=== PATIENT | female | born 1990 | race Caucasian/White ===

== ENCOUNTER 2018-08-11 07:30 | Inpatient (IN) | payer BC ==
[2018-08-12 11:53] LABS: RPR Titer ND
[2018-08-12 11:57] LABS: Urine Appearance CLEAR; Urine Bilirubin NEGATIVE (NEG); Urine Blood 1+ (NEG); Urine Color YELLOW; Urine Glucose NEGATIVE (NEG); Urine Protein TRACE (NEG); Urine Specific Gravity 1.015 (1.005-1.030); Urine Urobilinogen 0.2 mg/dL (0.2-1.0)
[2018-08-12] MEDS ORDERED: CEFAZOLIN/SWI 2gm 2 GM/20 ML SYR IV SCH (12:00)
[2018-08-12 12:03] LABS: Urine Microscopic Reflex ORDER UMIC
[2018-08-12 12:08] LABS: Absolute Lymphocytes (CBC) 2.4 K/uL (0.7-4.9); Absolute Monocytes 0.7 K/uL (0.1-1.3); Absolute Neutrophil 9.3 K/uL (1.8-8.0); Basophils % 0.3 % (0-1.3); Eosinophils % 0.8 % (0-4.4); Hematocrit 37.5 % (36.0-45.0); Lymphocytes % 19.1 % (15.3-44.8); MPV 10.3 fL (7.6-11.3); Monocytes % 5.4 % (3.3-12.3); RBC Red Blood Cell Count 4.28 M/uL (3.86-4.86)
[2018-08-12 12:16] LABS: Urine Bacteria 20-50 /HPF (<20); Urine Culture Reflex Order REFLEXED
--- NOTE | 2018-08-12 18:20 | PREOPHP ---
Date of Admission: 08/13/2018 History Of Present Illness: Ms. Kat is a 28-year-old female, 3, para 2-0-0-2, who has been followed by me during this with complications of prior secti on x2, rubella nonimmunity, Rh negative blood type, and anemia. She is scheduled for repeat section tomorrow and possible tubal ligation depending on the status of the lower uterine segment. Past Medical History: Please see record. Family History: Please see record. Review of Systems: She reports no recent cough, cold, fever, or chills. No recent nausea or vomiting. She denies any s ignificant abdominal pain. Infant has been active. She denies breast lumps or knots. She denies any bowel or bladder issues. She denies any vaginal bleeding. Physical Examination: General: Reveals a pleasant female, in no apparent distress. Neck: Supple without adenopathy or thyromegaly. Lungs: Clear. Cardiac: Regular rate and rhythm without murmurs. Breasts: Not examined. Abdomen: Estimated weight of 7+ pounds. Pelvic: Not performed. Extremities: No cyanosis, clubbing, or edema. Impression: A 39-week , prior section x2, rubella nonimmunity, requested permanent sterilization. Plan: As above. We will perform repeat section. We will evaluate uterine lower uterine seg ment. If extremely thin, we will perform tubal ligation as any future pregnancies would put Ms. Kat and her infant at significant risk. SAUD/ALLY Voice ID: [id number]
[2018-08-12 21:51] LABS: RPR (Rapid Plasma Reagin) NON-REACT (NON-REACT)
[2018-08-13] MEDS ORDERED: Ringers Lactate 1,000 ML IV PRN (06:31)
[2018-08-13] MEDS ORDERED: NA CIT/CITRIC AC 30 ML ORAL UDC PO ONE (06:36)
[2018-08-13] MEDS ORDERED: METOCLOPRAMIDE 10 MG/2mL INJ IV ONE (06:39)
[2018-08-13] MEDS ORDERED: FAMOTIDINE 20 MG/2 ML VIAL IV ONE ×2 (06:40→07:05)
[2018-08-13 06:44] VITALS: BMI 32.3
[2018-08-13] MEDS ORDERED: CEFAZOLIN 2 GM in NA CHLORIDE 0.9% 100 ML IVPB SCH (07:00)
[2018-08-13] MEDS ORDERED: Ringers Lactate 1,000 ML IV SCH (07:00)
[2018-08-13] MEDS ORDERED: METOCLOPRAMIDE 10 MG/2mL INJ ONE (07:04)
[2018-08-13] MEDS ORDERED: NA CIT/CITRIC AC 30 ML ORAL UDC ONE (07:04)
[2018-08-13] MEDS ORDERED: CEFAZOLIN/SWI 2gm 2 GM/20 ML SYR ONE (07:05)
[2018-08-13] MEDS ORDERED: EPHEDRINE SULF 50 MG/ML VIAL ONE (07:13)
[2018-08-13] MEDS ORDERED: OXYTOCIN 10 UNIT/ML ML IV ONE (07:13)
[2018-08-13] MEDS ORDERED: MORPHINE SULFATE/PF 1 MG/ML (10 ML AMP) ONE (07:13)
[2018-08-13] MEDS ORDERED: NS 0.9% VIAL 10 ML ONE (07:14)
[2018-08-13] MEDS ORDERED: Phenylephrine HCl 10 MG/ML 1 ML VIAL ONE (07:47)
[2018-08-13] MEDS ORDERED: NS 0.9% VIAL 20 ML ONE (07:48)
[2018-08-13] MEDS ORDERED: GLYCOPYRROLATE 0.2 MG/ML SYR ONE (07:52)
[2018-08-13] MEDS ORDERED: MIDAZOLAM HCL 2 MG/2 ML INJ ONE ×2 (07:53→08:15)
[2018-08-13] MEDS ORDERED: Rho(D) IG (HUMAN) 300 MCG SYR IM PRN (08:26)
[2018-08-13] MEDS ORDERED: KETOROLAC 30 MG/ML INJ IV PRN (08:26)
[2018-08-13] MEDS ORDERED: METHYLERGONOVINE 0.2MG/ML AMP IM PRN (08:26)
[2018-08-13] MEDS ORDERED: Oxycodone HCl/Acetaminophen 1 TAB TAB PO PRN (08:26)
[2018-08-13] MEDS ORDERED: METHYLERGONOVINE 0.2 MG TAB PO PRN (08:26)
[2018-08-13] MEDS ORDERED: ONDANSETRON 4 MG (ODT) TAB PO PRN (08:26)
[2018-08-13] MEDS ORDERED: CARBOPROST TROME 250 MCG/ML IM PRN (08:26)
[2018-08-13] MEDS ORDERED: FENTANYL CITR 250 MCG/5 ML ONE (08:30)
--- NOTE | 2018-08-13 08:31 | P.BOP ---
Preoperative diagnosis: 39 wk , prior sectionX2, requested sterilization Postoperative diagnosis: same, viable infant, thinned lower segment of uterus Primary procedure: Secondary procedure: tubal Tow Operator: Alecia Tijerina Estimated blood loss: less than 1000ml Specimen: placenta Findings: thinned lower uterine segment Anesthesia: Spinal Complications: None Drain(s): Urinary catheter Transferred to: Other (274) Condition: Good
[2018-08-13] MEDS ORDERED: OXYTOCIN/LR 20 UNIT/1,000 ML BAG IV SCH (09:00)
[2018-08-13] MEDS ORDERED: DIPHENHYDRAMINE 50 MG/ML VIAL ONE (13:54)
[2018-08-13] MEDS ORDERED: DIPHENHYDRAMINE 50 MG/ML VIAL IV PRN (14:09)
[2018-08-13] MEDS: Oxycodone HCl/Acetaminophen 1 TAB TAB PO PRN (22:50)
--- NOTE | 2018-08-14 02:04 | OP ---
Surgeon: Gm Chery MD Preoperative Diagnoses: A 39-week , prior section x2, requested sterilization. Procedure: Spinal block anesthesia, repeat section, delivery of viable female , bilat eral tubal ligation. Postoperative Diagnoses: A 39-week , prior section x2, requested sterilization Description Of Procedure: After the patient received 2 g of Ancef for antibiotic prophylaxis, Coleman catheter was placed and a satisfactory level of spinal block anesthesia was obtained. The patient wa s prepped and draped in usual fashion for abdominal surgery. A Pfannenstiel skin incision was made, carried down to the fascia. Fascia incised with a combination of sharp and blunt dissection. This w as from the underlying rectus muscles. These were divided in the midline. Peritoneum inci sed. A bladder flap was developed. The lower uterine segment was noted to be thin. A low-transvers e incision was made. A 7 pounds 15 ounce female , 9 and 9 was delivered, vertex presenta tion. The cord was milked toward the , clamped, cut, and the placed in a warmer. Cord blood was obtained. The placenta was manually removed. The uterus was then exteriorized. The cervi x was dilated from above with a ring clamp, which was passed from the operative field. The uterus wa s closed in two layers utilizing 0 Vicryl suture in a running fashion with the second layer of 0 Vicr yl used to imbricate the first. The vesicouterine peritoneum replaced. Because of the thinning of t he lower uterine segment, future pregnancies would be at increased risk for scar disruption. Because of this, tubal ligation was accomplished by creating an avascular window in the mesosalpinx and then two sutures of 0 chromic were used proximally and distally to a 1 cm tube which was excised. The ot her tube was likewise ligated. The uterus was returned to peritoneal cavity which was cleaned off am niotic fluid, debris, and blood clot. The rectus muscles were approximated in the midline with simpl e sutures of 0 Vicryl suture. The fascia was closed with a running suture of #1 Vicryl from either m argin to the middle. The skin closed with subcutaneous sutures of 3-0 Vicryl, subdermal suture of 3- 0 Vicryl, and then subcuticular suture of 4-0 Monocryl. Estimated total blood loss was less than 100 0 cc. The patient was taken to recovery room in satisfactory condition with sponge and needle counts correct x2. Rolling Machine Tender Surgeon: Dr. Tijerina. Anesthesia: Marianne Lehman. SAUD/ALLY Voice ID: [id number] Report ID: [id number]
[2018-08-14 05:22] LABS: Absolute Lymphocytes (CBC) 1.9 K/uL (0.7-4.9); Absolute Monocytes 0.7 K/uL (0.1-1.3); Absolute Neutrophil 10.4 K/uL (1.8-8.0); Basophils % 0.6 % (0-1.3); Eosinophils % 0.2 % (0-4.4); Lymphocytes % 14.7 % (15.3-44.8); MPV 9.8 fL (7.6-11.3); Monocytes % 5.3 % (3.3-12.3); RBC Red Blood Cell Count 3.91 M/uL (3.86-4.86)
[2018-08-14] MEDS: Oxycodone HCl/Acetaminophen 1 TAB TAB PO PRN ×4 (05:48→19:52)
[2018-08-14] MEDS: SIMETHICONE 80 MG TAB PO SCH ×2 (13:02→21:00)
--- NOTE | 2018-08-14 15:29 | RAD REPORT ---
EXAM DESCRIPTION: US - Abdomen Exam Limited - 08/14/2018 3:22 pm CLINICAL HISTORY: abd. painr/o intraperitoneal bleeding or hematoma COMPARISON: <Comparisons> FINDINGS: Limited abdominal sonography was performed to evaluate for free fluid collections. No free fluid collections were seen by the zipper joiner. IMPRESSION: Negative study.
[2018-08-14 15:41] LABS: Absolute Lymphocytes (CBC) 1.6 K/uL (0.7-4.9); Absolute Monocytes 0.7 K/uL (0.1-1.3); Absolute Neutrophil 11.4 K/uL (1.8-8.0); Basophils % 0.2 % (0-1.3); Eosinophils % 0.3 % (0-4.4); Hematocrit 34.3 % (36.0-45.0); Lymphocytes % 11.5 % (15.3-44.8); MPV 9.6 fL (7.6-11.3); Monocytes % 5.3 % (3.3-12.3); RBC Red Blood Cell Count 3.87 M/uL (3.86-4.86)
[2018-08-15 05:13] LABS: HBsAG Nonreactive (Nonreactive)
[2018-08-15] MEDS: Oxycodone HCl/Acetaminophen 1 TAB TAB PO PRN (07:27)
[2018-08-15 07:54] VITALS: BP 115/70; TEMP 97.2
--- NOTE | 2018-08-16 04:30 | DS ---
Date of Discharge: 08/15/2018 Final Hospital Discharge Diagnoses: 1.39-week . 2.Prior section x2. 3.Requested sterilization. Complications: None. Procedures: 1.Spinal block anesthesia. 2.Repeat section. 3.Tubal ligation. 4.Delivery of viable female . Hospital Course: The patient is a 28-year-old female, 3, para 2-0-0-2 at 3 9 weeks' gestation, admitted for repeat section. She underwent section, was dismis sed on the second postoperative day, ambulatory, on select diet with routine post activity restrictions. Lab work included an admission hemoglobin and hematocrit of 12.8 and 37.5, dismissal 1 1.4 and 34.3. She had a negative urinalysis. Nonreactive RPR. She has Rh negative blood type. Cor d blood type was Rh negative, so she did not require RhoGAM. She was dismissed to continue taking he r iron and vitamins, to be seen in my office this coming week with usual postoperative malaika fabiola section activity restrictions, with prescription for Tylenol No.3 #15 for pain relief. SAUD/ALLY Voice ID: [id number] Report ID: [id number]
== END 2018-08-15 09:20 | disposition home or self-care (01) | DRG 785 ==
LOC: 2ND-WC 08-13 05:54
PROVIDERS: ADMIT Specialist; ATTEND Specialist
PROC: 10D00Z1 Extraction of Products of Conception, Low, Open Approach (ICD-10-PCS; principal; 2018-08-13 07:30)
PROC: 0U570ZZ Destruction of Bilateral Fallopian Tubes, Open Approach (ICD-10-PCS; 2018-08-13 07:30)
DX: O34.211 Maternal care for low transverse scar from previous cesarean delivery (principal); Z3A.39 39 weeks gestation of pregnancy; Z37.0 Single live birth
CPT/HCPCS: 36415; 76705; 81003; 81015; 85025; 85461; 86592; 86850; 86870; 86900; 86901; 87086; 87088; 87340; 88302; 88307; J0690; J2250; J2370; J2590; J2765; J3010